=== PATIENT | male | born 1955 | race Caucasian/White ===

== ENCOUNTER 2020-03-15 05:56 | Emergency (ER) | payer BC ==
[~2020-03-15 05:56] MED LIST: BACTRIM DS TAB1 EACH PO; CLINDAMYCIN HC300 MG PO; KEFLEX CAP 500500 MG PO; PERCOCET 5/325 T1 EA PO
[2020-03-15 06:53] LABS: RED BLOOD COUNT 5.23 M/UL (4.20-5.50)
[2020-03-15 07:13] LABS: BUN/CREATININE RATIO 15 (0-10)
== END 2020-03-15 09:14 | disposition home or self-care (01) ==
LOC: ER1 05:56
PROVIDERS: Family Medicine
DX: R07.2 Precordial pain (principal); R00.2 Palpitations; I10 Essential (primary) hypertension
CPT/HCPCS: 71045; 80053; 82550; 82553; 83690; 83874; 84484; 85025; 93005; 99285

== ENCOUNTER → 2020-11-05 | Outpatient (CLI) | payer BC | LOC: KOH-I 08:29 | DX: M25.571 Pain in right ankle and joints of right foot (principal); M19.071 Primary osteoarthritis, right ankle and foot | CPT/HCPCS: 73600 ==